=== PATIENT | male | born 1990 | race Hispanic/Latino ===

== ENCOUNTER 2021-09-22 12:48 | Emergency (ER) | payer OTHER ==
[~2021-09-22] VITALS: Ht 190.5 cm; Wt 103.2 kg
[2021-09-22 12:49] VITALS: BP 142/73
[2021-09-22] MEDS ORDERED: IBUP200T46 PO (13:02)
[2021-09-22] MEDS ORDERED: TESS100C PO (16:20)
[2021-09-22] MEDS ORDERED: VENTAER INH (16:20)
== END 2021-09-22 17:14 | disposition home or self-care (01) ==
LOC: EDBD 12:48 → M ED 12:48
DX: R50.9 Fever, unspecified (principal); R05.9 Cough, unspecified; R51.9 Headache, unspecified; U07.1 COVID-19; Z20.828 Contact with and (suspected) exposure to other viral communicable diseases
CPT/HCPCS: 99282; U0003

== ENCOUNTER 2022-03-30 12:08 | Emergency (ER) | payer OTHER ==
[~2022-03-30] VITALS: Ht 190.5 cm; Wt 102.3 kg
[~2022-03-30 12:08] MED LIST: IBUP200T46 PO; TESS100C PO; VENTAER INH
[2022-03-30] MEDS ORDERED: KETOROLAC 60MG 2ML VIAL IM ONE (15:20)
[2022-03-30] MEDS ORDERED: LIDOCAINE 5% (LIDODERM) PATCH TD ONE (15:20)
[2022-03-30] MEDS ORDERED: methocarbamoL 750 MG TAB PO ONE (15:20)
[2022-03-30 15:55] VITALS: BP 127/74
[2022-03-30] MEDS ORDERED: ASPE4PAD TOP (16:06)
[2022-03-30] MEDS ORDERED: NAPR-837 PO (16:06)
[2022-03-30] MEDS ORDERED: METH-1165 PO (16:06)
[2022-03-31] MEDS ORDERED: **NOTE PATIENT COMMENT** MISC XX ONE (04:00)
== END 2022-03-30 16:26 | disposition home or self-care (01) ==
LOC: M ED 12:08
DX: M51.27 Other intervertebral disc displacement, lumbosacral region (principal); M54.17 Radiculopathy, lumbosacral region; F17.200 Nicotine dependence, unspecified, uncomplicated
CPT/HCPCS: 72131; 96372; 99283; J1885